=== PATIENT | male | born 1980 | race Caucasian/White ===

== ENCOUNTER 2024-10-12 13:09 | Outpatient (CLI) | payer OTHER, SELFPAY | END 2024-10-12 13:10 | disposition home or self-care (01) | LOC: ANHAUDASC 13:11 | PROVIDERS: PCP Clinical Nurse Specialist; Visit Provider Clinical Nurse Specialist | DX: H93.12 Tinnitus, left ear (principal) | CPT/HCPCS: 92557; 92567 ==